=== PATIENT | female | born 1990 | race Two or more races ===

== ENCOUNTER 2023-08-28 03:26 | Emergency (ER) | payer SELFPAY ==
[~2023-08-28] VITALS: Ht 165.1 cm; Wt 72.5 kg
[2023-08-28 03:34] VITALS: BP 129/81; PULSE 89; RESP 16; TEMP 99.3; O2SAT 97
[2023-08-28 04:21] LABS: Basophils # (auto) 0 10 ^3/uL (0-0.2); Basophils % (auto) 0.2 % (0.0-2.0); Eosinophils # (auto) 0.2 10 ^3/uL (0-0.8); Eosinophils % (auto) 1.3 % (0.0-7.0); Hematocrit 40.8 % (36.0-46.0); Hemoglobin 13.7 g/dL (12.2-16.2); Lymphocytes # (auto) 1.4 10 ^3/uL (0.4-5.4); Lymphocytes % (auto) 11.3 % (10.0-50.0); Mean Corpuscular Hemoglobin 32.2 pg (28.0-32.0); Mean Corpuscular Hgb Conc. 33.5 g/dL (32.0-36.0); Mean Corpuscular Volume 96.1 fL (80.0-100.0); Monocytes # (auto) 1.1 10 ^3/uL (0-1.3); Monocytes % (auto) 9.3 % (0.0-12.0); Neutrophils # (auto) 9.6 10 ^3/uL (1.6-8.6); Neutrophils % (auto) 77.9 % (37.0-80.0); Red Blood Cells 4.25 10^6/uL (4.0-5.20); Red Cell Distribution Width 13.4 % (11.8-14.3); White Blood Cell 12.3 10^3/uL (4.4-10.8)
[2023-08-28 04:24] LABS: Albumin 4.7 g/dL (3.2-4.8); Alkaline Phosphatase 80 U/L (46-116); Anion Gap 7 (5-15); Aspartate Aminotransferase 21 U/L (13-40); BUN/Creatinine Ratio 14.3 (10.0-20.0); Bilirubin, Total 0.5 mg/dL (0.2-1.0); Blood Urea Nitrogen 10 mg/dL (9-23); Calcium 8.7 mg/dL (8.7-10.4); Carbon Dioxide 24 mmol/L (20-30); Chloride 108 mmol/L (98-107); Glucose 111 mg/dL (74-106); Lipase 35 U/L (12-53); Potassium 4.2 mmol/L (3.5-5.1); Sodium 139 mmol/L (136-145); Total Protein 7.6 g/dL (5.7-8.2)
[2023-08-28 04:27] LABS: Urine Bacteria NONE SEEN /hpf (None Seen); Urine Blood Negative /uL (Negative); Urine Clarity Clear (Clear); Urine Color Yellow (Yellow); Urine Protein, UAD TRACE (Negative); Urine Specific Gravity 1.031 (1.001-1.035); Urine Urobilinogen Normal (Negative); Urine WBC 6 /hpf (0 - 5); Urine pH 7.5 (5.0-8.0)
[2023-08-28 04:38] LABS: Alanine Aminotransferase < 9 U/L (7-40)
[2023-08-28] MEDS ORDERED: KETOROLAC TROMETH 60MG/2ML VIAL IM ONE (07:00)
[2023-08-28] MEDS ORDERED: BACDST PO (07:11)
[2023-08-28] MEDS ORDERED: LACT10SO3 PO (07:11)
[2023-08-28] MEDS ORDERED: ACET-1080 PO (07:11)
[2023-08-28] MEDS ORDERED: ONDANSETRON ODT 4 MG TAB PO ONE (07:30)
== END 2023-08-28 07:18 | disposition home or self-care (01) ==
LOC: ER 03:26
DX: N39.0 Urinary tract infection, site not specified (principal); K59.00 Constipation, unspecified
CPT/HCPCS: 36415; 74176; 80053; 81001; 81025; 83690; 85025; 96372; 99285; J1885; Q0162